=== PATIENT | male | born 1975 | race Caucasian/White ===

== ENCOUNTER 2020-01-01 17:43 | Emergency (ER) | payer OTHER ==
[~2020-01-01] VITALS: Ht 188 cm; Wt 110.0 kg
[2020-01-01 17:45] VITALS: BP 161/113
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
--- NOTE | 2020-01-01 19:04 | NUR ---
BEDSIDE REPORT TO MIGUELINA ALEXIS.
--- NOTE | 2020-01-01 19:10 | NUR ---
REPORT RECEIVED FROM MIGUELINA DERAS. [facility]
== END 2020-01-01 20:42 | disposition home or self-care (01) ==
LOC: ED 19:12
DX: G89.11 Acute pain due to trauma (principal); M25.462 Effusion, left knee; I10 Essential (primary) hypertension; X50.0XXA Overexertion from strenuous movement or load, initial encounter; Y93.89 Activity, other specified; Y92.009 Unspecified place in unspecified non-institutional (private) residence as the place of occurrence of the external cause; Y99.8 Other external cause status
CPT/HCPCS: 99283